=== PATIENT | female | born 2005 | race Two or more races ===

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

== ENCOUNTER 2024-12-20 19:10 | Emergency (ER) | payer OTHER ==
[2024-12-20 19:17] VITALS: BP 123/63; PULSE 85; RESP 18; TEMP 97.9; BMI 39.4
[2024-12-20] MEDS ORDERED: ACETAMINOPHEN 500 MG TABLET (FP) ONE (20:13)
[2024-12-20] MEDS: ACETAMINOPHEN 500 MG TABLET (FP) PO ONE (20:14)
== END 2024-12-20 20:21 | disposition home or self-care (01) ==
LOC: JERFT 19:10
DX: S99.921A Unspecified injury of right foot, initial encounter (principal); W01.0XXA Fall on same level from slipping, tripping and stumbling without subsequent striking against object, initial encounter; Y93.01 Activity, walking, marching and hiking
CPT/HCPCS: 73630-TC-RT-FY; 99283-25